=== PATIENT | male | born 1975 | race Caucasian/White ===

== ENCOUNTER 2018-10-19 19:26 | Emergency (ER) | payer MEDICARE ==
--- NOTE | 2018-10-19 20:20 | ER Document Report ---
Addendum entered and electronically signed by ULISES GILBERT MD 10/22/18 13:27: Discharge - Discharge Clinical Impression: Aggressive behavior, Neurodevelopmental disorder, Disorder of intellectual development Condition: Stable Disposition: HOME, SELF-CARE Additional Instructions: You have been evaluated both medical and behavioral health teams and have been deemed appropriate to discharge to your family. You have been started on medication and provided prescriptions of Depakote 250 mg twice daily and Zyprexa Zydis 2.5 mg twice daily; please take as directed. You are recommended to follow-up with neuropsychological testing with Edmond Nam ([phone]). Please continue working with both [facility] ([facility]) and Adult Protective Services (APS) for your continued plan of care. AT ANY TIME, IF YOUR SYMPTOMS CHANGE SIGNIFICANTLY OR WORSEN OR YOU DEVELOP NEW SYMPTOMS, RETURN TO THE EMERGENCY DEPARTMENT IMMEDIATELY FOR RE-EVALUATION. Prescriptions: Divalproex Sodium [Depakote Er 250 Mg Tablet] 250 mg PO BID #60 tab.sr.24h Olanzapine [Zyprexa Zydis 5 Mg Odt Tablet] 2.5 mg PO BID #60 tab.rapdis Olanzapine [Zyprexa Zydis 5 Mg Odt Tablet] 2.5 mg PO BID #30 tab.rapdis Referrals: [facility] [Outside] - Follow up in 3-5 days [facility] Crisis Team [Outside] - Follow up as needed Addendum entered and electronically signed by MAXIMILIANO FLORES LCSWA 10/22/18 11:47: Discharge - Discharge Clinical Impression: Aggressive behavior, Neurodevelopmental disorder, Disorder of intellectual development Condition: Stable Disposition: HOME, SELF-CARE Additional Instructions: You have been evaluated both medical and behavioral health teams and have been deemed appropriate to discharge to your family. You have been started on medication and provided prescriptions of Depakote 250 mg twice daily and Zyprexa Zydis 2.5 mg twice daily; please take as directed. You are recommended to follow-up with neuropsychological testing with Edmond Nam ([phone]). Please continue working with both [facility] ([facility]) and Adult Protective Services (APS) for your continued plan of care. AT ANY TIME, IF YOUR SYMPTOMS CHANGE SIGNIFICANTLY OR WORSEN OR YOU DEVELOP NEW SYMPTOMS, RETURN TO THE EMERGENCY DEPARTMENT IMMEDIATELY FOR RE-EVALUATION. Referrals: [facility] Crisis Team [Outside] - Follow up as needed [facility] [Outside] - Follow up in 3-5 days Addendum entered and electronically signed by CHRISTY RAMÍREZ DO 10/19/18 22:58: Course - Vital Signs Vital signs: Temp Pulse Resp BP Pulse Ox 97.9 F 82 16 115/81 97 10/19/18 22:09 10/19/18 22:09 10/19/18 22:09 10/19/18 22:09 10/19/18 22:09 - Laboratory Result Diagrams: 10/19/18 19:56 10/19/18 19:56 Laboratory results interpreted by me: 10/19/18 10/19/18 19:30 19:56 BUN 28 H Urine Protein 30 H Urine Urobilinogen 2.0 H Salicylates < 1.0 L Acetaminophen < 10 L - EKG Interpretation by Me Additional EKG results interpreted by me: 10/19/18 22:57 Interpreted by myself 2253: Normal sinus rhythm, rate 80, normal axis, no ectopy, no STEMI, LVH Original Note: ED General - General Chief Complaint: Psych Problem Stated Complaint: IVC Time Seen by Provider: 10/19/18 20:09 TRAVEL OUTSIDE OF THE [place] 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 Patient was placed on an IVC petition by his mother and integrated family services. He arrived via police escort. Patient has reportedly been on [facility] trying to kiss young boys. He does live at home with family and has been having increasingly violent and combative behavior towards them. Patient denies any homicidal or suicidal ideations. He currently has no complaints. 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 REVIEW OF SYSTEMS: CONSTITUTIONAL : No fever No chills No diaphoresis No recent illness EENT: No vision changes No congestion No sore throat CARDIOVASCULAR: No chest pain No palpitations RESPIRATORY: No shortness of breath No cough No difficulty breathing GASTROINTESTINAL: No abdominal pain No nausea No vomiting No diarrhea GENITOURINARY: No dysuria No hematuria No difficulty urinating MUSCULOSKELETAL: No back pain No leg pain No arm pain SKIN: No rashes No lesions LYMPHATIC: No swollen, enlarged glands. NEUROLOGICAL: No lightheadedness No headache No weakness No paresthesias PSYCHIATRIC: No anxiety No depression PHYSICAL EXAMINATION: Vital signs reviewed, nursing noted reviewed. GENERAL: Well-appearing, thin and in no acute distress. HEAD: Atraumatic, normocephalic. EYES: Eyes appear normal, extraocular movements intact, sclera anicteric, conjunctiva are normal. ENT: nares patent, oropharynx clear without exudates. Moist mucous membranes. NECK: Normal range of motion, supple without lymphadenopathy LUNGS: Breath sounds clear to auscultation bilaterally and equal. No wheezes rales or rhonchi. HEART: Regular rate and rhythm without murmurs ABDOMEN: Soft, nontender, normoactive bowel sounds. No rebound, guarding, or rigidity. No masses appreciated. EXTREMITIES: Nontender, good range of motion, no pitting or edema. NEUROLOGICAL: Mild intention tremor of upper extremities, no focal neurological deficits. Moves all extremities spontaneously Motor and sensory grossly intact on exam. PSYCH: Agitated mood, flat affect. SKIN: Warm, Dry, normal turgor, no rashes or lesions noted on exposed skin Past Medical History - Social History Smoking Status: Never Smoker Family History: Reviewed & Not Pertinent Physical Exam - Vital signs Vitals: Temp Pulse Resp BP Pulse Ox 98.1 F 76 16 133/96 H 100 10/19/18 19:35 10/19/18 19:35 10/19/18 19:35 10/19/18 19:35 10/19/18 19:35 Course - Re-evaluation Re-evalutation: 10/19/18 20:19 Vitals reviewed. Nursing notes reviewed. Patient is agitated that he must remain in the emergency room tonight. He did arrive with IVC petition from his mother and IFS. Patient not currently suicidal or homicidal. Medical clearance lab work has been ordered. 10/19/18 21:38 Patient's work-up is unremarkable. He is medically cleared for further psych evaluation in the morning. Laboratory 10/19/18 10/19/18 10/19/18 19:30 19:30 19:56 WBC 8.2 RBC 5.13 Hgb 15.5 Hct 46.2 MCV 90 MCH 30.3 MCHC 33.6 RDW 12.3 Plt Count 331 Seg Neutrophils % 60.3 Lymphocytes % 27.1 Monocytes % 10.8 Eosinophils % 1.3 Basophils % 0.5 Absolute Neutrophils 4.9 Absolute Lymphocytes 2.2 Absolute Monocytes 0.9 Absolute Eosinophils 0.1 Absolute Basophils 0.0 Sodium Potassium Chloride Carbon Dioxide Anion Gap BUN Creatinine Est GFR ( Amer) Est GFR (Non-Af Amer) Glucose Calcium Total Bilirubin Direct Bilirubin Neonat Total Bilirubin Neonat Direct Bilirubin Neonat Indirect Bili AST ALT Alkaline Phosphatase Total Protein Albumin Urine Color YELLOW Urine Appearance CLEAR Urine pH 5.0 Ur Specific Allen 1.029 Urine Protein 30 H Urine Glucose (UA) NEGATIVE Urine Ketones NEGATIVE Urine Blood NEGATIVE Urine Nitrite NEGATIVE Urine Bilirubin NEGATIVE Urine Urobilinogen 2.0 H Ur Leukocyte Esterase NEGATIVE Urine WBC (Auto) 1 Urine RBC (Auto) 0 Squamous Epi Cells Auto <1 Urine Mucus (Auto) OCC Urine Ascorbic Acid NEGATIVE Salicylates Urine Opiates Screen NEGATIVE Urine Methadone Screen NEGATIVE Acetaminophen Ur Barbiturates Screen NEGATIVE Ur Phencyclidine Scrn NEGATIVE Ur Amphetamines Screen NEGATIVE U Benzodiazepines Scrn NEGATIVE Urine Cocaine Screen NEGATIVE U Marijuana (THC) Screen NEGATIVE Serum Alcohol 10/19/18 19:56 WBC RBC Hgb Hct MCV MCH MCHC RDW Plt Count Seg Neutrophils % Lymphocytes % Monocytes % Eosinophils % Basophils % Absolute Neutrophils Absolute Lymphocytes Absolute Monocytes Absolute Eosinophils Absolute Basophils Sodium 139.5 Potassium 4.7 Chloride 103 Carbon Dioxide 25 Anion Gap 12 BUN 28 H Creatinine 0.71 Est GFR ( Amer) > 60 Est GFR (Non-Af Amer) > 60 Glucose 93 Calcium 9.9 Total Bilirubin 0.4 Direct Bilirubin 0.2 Neonat Total Bilirubin Not Reportable Neonat Direct Bilirubin Not Reportable Neonat Indirect Bili Not Reportable AST 24 ALT 23 Alkaline Phosphatase 82 Total Protein 7.9 Albumin 4.7 Urine Color Urine Appearance Urine pH Ur Specific Allen Urine Protein Urine Glucose (UA) Urine Ketones Urine Blood Urine Nitrite Urine Bilirubin Urine Urobilinogen Ur Leukocyte Esterase Urine WBC (Auto) Urine RBC (Auto) Squamous Epi Cells Auto Urine Mucus (Auto) Urine Ascorbic Acid Salicylates < 1.0 L Urine Opiates Screen Urine Methadone Screen Acetaminophen < 10 L Ur Barbiturates Screen Ur Phencyclidine Scrn Ur Amphetamines Screen U Benzodiazepines Scrn Urine Cocaine Screen U Marijuana (THC) Screen Serum Alcohol < 10 - Vital Signs Vital signs: Temp Pulse Resp BP Pulse Ox 98.1 F 76 16 133/96 H 100 10/19/18 19:35 10/19/18 19:35 10/19/18 19:35 10/19/18 19:35 10/19/18 19:35 - Laboratory Result Diagrams: 10/19/18 19:56 10/19/18 19:56 Laboratory results interpreted by me: 10/19/18 10/19/18 19:30 19:56 BUN 28 H Urine Protein 30 H Urine Urobilinogen 2.0 H Salicylates < 1.0 L Acetaminophen < 10 L Discharge - Discharge Clinical Impression: Aggressive behavior Condition: Stable Disposition: PSYCH HOSP/UNIT
[2018-10-19 20:47] LABS: ABSOLUTE EOSINOPHILS # (AUTO) 0.1 10^3/uL (0.0-0.6); ABSOLUTE LYMPHOCYTES (AUTO) 2.2 10^3/uL (0.5-4.7); ABSOLUTE MONOCYTES (AUTO) 0.9 10^3/uL (0.1-1.4); ABSOLUTE NEUT (AUTO) 4.9 10^3/uL (1.7-8.2); BASOPHILS % (AUTO) 0.5 % (0-2); EOSINOPHILS % (AUTO) 1.3 % (0-6); HEMATOCRIT 46.2 % (37.9-51.0); HEMOGLOBIN 15.5 g/dL (13.5-17.0); LYMPHOCYTES % (AUTO) 27.1 % (13-45); MEAN CORPUSCULAR HEMOGLOBIN 30.3 pg (27.0-33.4); MEAN CORPUSCULAR HGB CONC 33.6 g/dL (32.0-36.0); MEAN CORPUSCULAR VOLUME 90 fl (80-97); MONOCYTES % (AUTO) 10.8 % (3-13); PLATELET COUNT 331 10^3/uL (150-450); RED BLOOD COUNT 5.13 10^6/uL (4.35-5.55); RED CELL DISTRIBUTION WIDTH 12.3 % (11.5-14.0); SEGMENTED NEUTROPHILS % (AUTO) 60.3 % (42-78); TOTAL CELLS COUNTED % (AUTO) 100 %; WHITE BLOOD COUNT 8.2 10^3/uL (4.0-10.5)
[2018-10-19 21:08] LABS: ALANINE AMINOTRANSFERASE 23 U/L (21-72); ALBUMIN 4.7 g/dL (3.5-5.0); ALKALINE PHOSPHATASE 82 U/L (38-126); ANION GAP 12 (5-19); ASPARTATE AMINO TRANSFERASE 24 U/L (17-59); BILIRUBIN,DIRECT 0.2 mg/dL (0.0-0.4); BILIRUBIN,TOTAL 0.4 mg/dL (0.2-1.3); BLOOD UREA NITROGEN 28 mg/dL (7-20); CALCIUM 9.9 mg/dL (8.4-10.2); CARBON DIOXIDE 25 mmol/L (22-30); CHLORIDE 103 mmol/L (98-107); GLUCOSE 93 mg/dL (75-110); POTASSIUM 4.7 mmol/L (3.6-5.0); TOTAL PROTEIN 7.9 g/dL (6.3-8.2)
[2018-10-19 21:09] LABS: ACETAMINOPHEN < 10 ug/mL (10-30); ALCOHOL < 10 mg/dL (NONE DETECTED); SALICYLATE < 1.0 mg/dL (2.0-20.0)
[2018-10-19 21:10] LABS: APPEARANCE,URINE CLEAR; BILIRUBIN,URINE NEGATIVE (NEGATIVE); COLOR,URINE YELLOW; GLUCOSE, URINE NEGATIVE (NEGATIVE); KETONES,URINE NEGATIVE (NEGATIVE); LEUKOCYTE ESTERASE,URINE NEGATIVE (NEGATIVE); NITRITE,URINE NEGATIVE (NEGATIVE); PROTEIN,URINE 30 mg/dL (NEGATIVE); URINE SPECIFIC GRAVITY 1.029
[2018-10-19 21:24] LABS: URINE AMPHETAMINES SCREEN NEGATIVE; URINE BARBITURATES SCREEN NEGATIVE; URINE BENZODIAZEPINES SCREEN NEGATIVE; URINE COCAINE SCREEN NEGATIVE; URINE MARIJUANA (THC) SCREEN NEGATIVE; URINE METHADONE SCREEN NEGATIVE; URINE PHENCYCLIDINE SCREEN NEGATIVE
--- NOTE | 2018-10-19 23:48 | EKG REPORT ---
SEVERITY:- ABNORMAL ECG - SINUS RHYTHM LEFT VENTRICULAR HYPERTROPHY : Confirmed by: Gene Blanton 19-Oct-2018 23:47:29
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
[2018-10-20] MEDS: DIVALPROEX SODIUM 250 MG TAB.SR.24H PO SCH ×2 (12:58→17:19)
[2018-10-20] MEDS: OLANZAPINE 5 MG TAB.RAPDIS PO SCH ×2 (12:59→17:19)
[2018-10-21] MEDS: DIVALPROEX SODIUM 250 MG TAB.SR.24H PO SCH ×2 (09:43→19:10)
[2018-10-21] MEDS: OLANZAPINE 5 MG TAB.RAPDIS PO SCH ×2 (09:44→19:10)
--- NOTE | 2018-10-21 11:10 | ER Document Report ---
Doctor's Note Notes: 10/21/18 11:09 Rounds: Chart reviewed and patient interviewed. Patient has a chromosomal abnormality resulting in him being mentally challenged. Has been here previously. Lab studies were all normal. Vital signs are normal except for pulse of 56 at 4 AM this morning. Patient does not exhibit any symptoms from a low pulse or blood pressure. Vital signs of all been otherwise normal. Patient appears to be medically stable for transfer or discharge. Arina Angeles MD
--- NOTE | 2018-10-22 09:30 | ER Document Report ---
Doctor's Note Notes: 10/22/18 09:29 43-year-old male with past medical history as recorded including translocation of chromosome 5 and 10 with some mild mental retardation who presents today with concern from his parents who are his caregivers secondary to some strange behavior towards others and becoming slightly aggressive. No physical harm to the caregivers. Patient himself denies any and all complaints of pain. Vital signs and labs as recorded. Behavioral health is held the patient here for an extra night. They have contacted Adult Protective Services and have involved in a graded family services. They do not believe that the patient meets criteria for IVC at this time. They would like the patient to be discharged. We will make sure that the family is comfortable with this plan and will help to provide outpatient follow-up. 10/22/18 13:23 Psychology/psychiatry team is seen and assessed the patient. The patient's father is here and feels very comfortable with the patient going home. They have multiple family members coming into the area to assist at this time. They have asked me to start the patient on 1 month of medications and will help follow-up with the patient. She is currently calm and cooperative in no acute distress.
[2018-10-22] MEDS: OLANZAPINE 5 MG TAB.RAPDIS PO SCH (09:32)
[2018-10-22] MEDS: DIVALPROEX SODIUM 250 MG TAB.SR.24H PO SCH (09:32)
--- NOTE | 2018-10-22 10:04 | PSYCHOLOGICAL NOTE ---
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 Medication recommendations per [facility]'s contracted psychiatrist Dr. Gustavo OLIVARES are as follows please discontinue home medication of clonazepam please add Depakote 250 mg twice daily please add Zyprexa Zydis 2.5 mg twice daily 315.9 (F89) unspecified neurodevelopmental disorder 319 (F79) unspecified intellectual disorder Impression\plan: Patient is recommended for rescind of IVC as he does not meet IVC criteria per [place] GS 122C. Patient initially presented with behavioral episodes. 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 Medication recommendations were provided. Patient is recommended for overnight mental health observation. This is both to continue monitoring the patient on his new medications and to assist with respite. Adult Protective Services report that there is possibly a ch[facility] that is interested in the patient and are submitting today requested paperwork to that chcf. Dr. Vinson was consulted to care and management of this patient; attending physicians in agreement with recommendations and disposition.
--- NOTE | 2018-10-22 11:43 | PSYCHOLOGICAL NOTE ---
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 Patient attempted to leave. Clinician spoke with patient about the importance of following rules. To include this would include plan of care identified by Adult Protective Services of not walking the beach unsupervised. Patient is upset and crying and states that he should be allowed to walk on the beach because he is an adult and he likes to walk on the beach. Clinician notes patient does start to cuss at one tie but immediately stopped and apologized for cussing. Patient was reminded that he is not been doing well with boundaries and that he cannot be kissing people on the beach. Patient was reminded that his buttonhole marker has explained to him that he cannot be walking on the beach alone at any time. Patient states okay and throws his arms down. Clinician spoke with patient's father. He reports family has been arriving from out of town/[facility] for a yearly family reunion. He reports that there will be many additional family members to assist in both visual and physical monitoring of the patient i.e. walking on beach etc. He reports that he has removed all access to Internet and abscess on the patient's phone so he is only able to make calls or engage in face time with contacts. Clinician reminded patient's father that if plan of care from APS included no phone, they needed to discuss any changes they would like with APS as their plan of care cannot be changed by clinician. He confirms he understands. Clinician discussed providing additional resources for the local area that can add additional assistance; this will be provided to the patient's father upon arrival. Medication recommendations per [facility]'s contracted psychiatrist Dr. Gustavo OLIVARES are as follows please discontinue home medication of clonazepam please add Depakote 250 mg twice daily please add Zyprexa Zydis 2.5 mg twice daily 315.9 (F89) unspecified neurodevelopmental disorder 319 (F79) unspecified intellectual disorder Impression\\plan: Patient is cleared from acute psychiatric services. Patient initially presented with behavioral episodes. 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 Medication recommendations were provided. Adult Protective Services and integrated family services are currently working with the patient and family. Currently the patient is his own guardian with his father having POA. APS reports they have substantiated on the patient (per APS SW spikemaking supervisor) and will continue to work with him and his family. Patient's father reports that family from both out of town and [facility] have been arriving since yesterday for a weeklong family reunion that occurs yearly. He reports that with significant increase in family, there will be plenty of "eyes" for supervision and assistance for the patient. Additional resources have been provided to the patient's family to include [facility], [facility], [facility], the [facility], [place] and [facility] programs. Dr. Vinson was consulted to care and management of this patient; attending physicians in agreement with recommendations and disposition.
[2018-10-22 13:00] VITALS: BP 138/98
== END 2018-10-22 13:34 | disposition home or self-care (01) ==
LOC: ER 19:26
DX: Q99.8 Other specified chromosome abnormalities (principal); F79 Unspecified intellectual disabilities; R45.6 Violent behavior; G25.2 Other specified forms of tremor
CPT/HCPCS: 93005; 99285; 36415; 80307 ×4; 85025; 80053; 81001; 93010; A9270 ×6; J3490